=== PATIENT | female | born 1935 | race Caucasian/White ===

== ENCOUNTER 2016-09-28 15:27 | Emergency (ER) | payer OTHER ==
[2016-09-28 15:46] LABS: LEUKOCYTE ESTERASE,URINE 2+ (NEGATIVE); NITRITE,URINE NEGATIVE (NEGATIVE); PH,URINE 5.5 (5.0-7.5)
--- NOTE | 2016-09-28 15:46 | UCPHY ---
H & P Patient Type: New Time Seen by Provider: 09/28/16 15:36 HPI/ROS: Chief complaint: Burning with urination and urinary frequency HPI 81-year-old woman presenting with 1 day of urinary frequency and burning with urination. She has not have a history of frequent urinary tract infections in the past. No fevers or chills. No abdominal pain. No back pain. No nausea or vomiting. She has otherwise been in her normal state health. ROS: 10 point Review of Systems is negative except as noted in the HPI. Physical exam: Gen: Awake, Alert, No Distress HEENT: Nose: no rhinorrhea Eyes: PERRLA, EOMI Mouth: Moist mucosa Abd: Soft, non-tender, no guarding Back: no CVA tenderness, no midline tenderness Ext: no edema, non-tender Skin: no rash Neuro: CN II-XII intact, Sensation grossly intact, Strength 5/5 in bilateral upper and lower extremities - Personal History Tetanus Vaccine Date: UNKNOWN - Family History Significant Family History: No pertinent family hx Allergies/Adverse Reactions: Penicillins Allergy (Severe, Verified 09/28/16 15:52) Anaphylaxis ciprofloxacin [From Cipro] Allergy (Intermediate, Verified 09/28/16 15:52) Other-Enter Comments ciprofloxacin HCl [From Cipro] Allergy (Intermediate, Verified 09/28/16 15:52) N&V Sulfa (Sulfonamide Antibiotics) Allergy (Intermediate, Verified 09/28/16 15:52) DIZZINESS/N&V TB NELLY TEST Allergy (Uncoded 09/28/16 15:52) Other-Enter Comments Home Medications: Medication Instructions Recorded Doxycycline 06/28/11 LEVOTHYROXINE SODIUM 06/28/11 LISINOPRIL 06/28/11 PREMARIN 06/28/11 Warfarin Sodium [Coumadin] 5 mg PO DAILY16 #10 tab 06/28/11 Nitrofurantoin Monohyd/M-Cryst 100 mg PO BID #10 capsule 09/28/16 [Macrobid 100 mg Capsule] Medical Decision Making ED Course/Re-evaluation: Urinalysis consistent with UTI. Will start her on Macrobid. She will follow up with her primary care physician in 4-5 days for recheck, return for worsening. Urine cultures have been sent. - Data Points Laboratory Results: 09/28/16 15:40 Urine Color PALE YELLOW Urine Appearance HAZY Urine pH 5.5 (5.0-7.5) Ur Specific [place] 1.010 (1.002-1.030) Urine Protein NEGATIVE (NEGATIVE) Urine Ketones NEGATIVE (NEGATIVE) Urine Blood 1+ H (NEGATIVE) Urine Nitrate NEGATIVE (NEGATIVE) Urine Bilirubin NEGATIVE (NEGATIVE) Urine Urobilinogen 0.2 EU (0.2-1.0) Ur Leukocyte Esterase 2+ H (NEGATIVE) Urine RBC Pending Urine WBC Pending Ur Epithelial Cells Pending Ur Culture Indicated? INDICATED H (NI) Urine Glucose NEGATIVE (NEGATIVE) Departure - Departure Disposition: Home, Routine, Self-Care Clinical Impression: Urinary tract infection Condition: Good Instructions: Urinary Tract Infection in Women (ED) Additional Instructions: Follow up with her primary care doctor in 4-5 days if symptoms are not improving. Return to urgent care or go to the emergency department for worsening pain, fevers chills, nausea, vomiting, or any other concerns. Referrals: Dorita Wilson MD [Primary Care Provider] - As per Instructions Prescriptions: Nitrofurantoin Monohyd/M-Cryst [Macrobid 100 mg Capsule] 100 mg PO BID #10 capsule - PQRS PQRS Measurement: 134: Depression screening and followup, PRIME MD-PHQ2 (12 years and older) Over the last 2 weeks, how often have you been bothered by any of the following problems? 1. Feeling down, depressed, or hopeless? 2. Little interest or pleasure in doing things? Patient answered no to both 1 and 2 130: Documentation of medications. Reviewed all patient medications, doses, route and frequency. 226: Do you smoke? No. 47: 65 and older: Advanced care planning. Patient designates surrogate decision maker as child. Patient has advanced directive. 51: 18 years old and older with diagnosis of COPD, spirometry performance. Patient has no history of COPD 52: 18 years old and older with COPD and symptoms of COPD or FEV1<60% predicted prescribed a B Agonist. Spirometry not performed; equipment not available.
[2016-09-28 15:47] LABS: COLOR PALE YELLOW
[2016-09-28 15:53] LABS: BACTERIA 2+ /hpf (NONE SEEN); MUCUS 1+ /lpf (NONE-1+); RBC,URINE 50-182 /hpf (0-3); WBC,URINE 25-50 /hpf (0-3)
[2016-09-28] MEDS ORDERED: NITROFURANTOIN 100MG PREPACK#2 BTL TAKEHOME ONE (15:53)
[2016-09-28 16:03] VITALS: BP 178/93; PULSE 77; RESP 16; TEMP 97.7; O2SAT 95
== END 2016-09-28 16:23 | disposition home or self-care (01) ==
LOC: CED 15:27
DX: N39.0 Urinary tract infection, site not specified (principal)
CPT/HCPCS: 81003-PO; 81015-PO; G0463-PO

== ENCOUNTER → 2017-03-05 | Outpatient (CLI) | payer OTHER ==
[~2017-03-05] MED LIST: GADOBUTROL 10 ML VIAL IVP ONE
== END ==
LOC: FIMAGING 11:48
PROVIDERS: ATTEND Family Medicine
DX: G31.9 Degenerative disease of nervous system, unspecified (principal); G93.89 Other specified disorders of brain; D68.59 Other primary thrombophilia; Z86.718 Personal history of other venous thrombosis and embolism
CPT/HCPCS: 70553; A9585

== ENCOUNTER → 2017-12-21 | Outpatient (CLI) | payer OTHER | LOC: FIMAGING 13:37 | PROVIDERS: ATTEND Family Medicine | DX: R05 Cough (principal); R73.9 Hyperglycemia, unspecified; M48.062 Spinal stenosis, lumbar region with neurogenic claudication; Z79.899 Other long term (current) drug therapy ==

== ENCOUNTER → 2018-12-12 | Outpatient (CLI) | payer OTHER | LOC: FIMAGING 10:02 | PROVIDERS: ATTEND Family Medicine | DX: R76.11 Nonspecific reaction to tuberculin skin test without active tuberculosis (principal); F03.90 Unspecified dementia, unspecified severity, without behavioral disturbance, psychotic disturbance, mood disturbance, and anxiety; I10 Essential (primary) hypertension; E03.9 Hypothyroidism, unspecified; R22.31 Localized swelling, mass and lump, right upper limb ==